=== PATIENT | male | born 1985 | race Caucasian/White ===

== ENCOUNTER → 2016-11-19 | Outpatient (CLI) | payer OTHER ==
[2016-11-19 10:49] LABS: HEMOGLOBIN 15.5 gm/dl (14.0-17.5); RED BLOOD COUNT 4.85 M/UL (4.20-5.50); WHITE BLOOD COUNT 7.6 K/UL (4.5-11.0)
[2016-11-19 11:12] LABS: BUN/CREATININE RATIO 11 (0-10)
== END ==
LOC: LAB 10:13
PROVIDERS: Dermatology
DX: L40.0 Psoriasis vulgaris (principal); L40.1 Generalized pustular psoriasis
CPT/HCPCS: 36415; 80053; 82248; 85027

== ENCOUNTER → 2021-07-01 | Outpatient (CLI) | payer OTHER ==
[2021-07-01 17:39] LABS: HEMOGLOBIN 16.2 gm/dl (14.0-17.5); RED BLOOD COUNT 4.82 M/UL (4.20-5.50); WHITE BLOOD COUNT 9.1 K/UL (4.5-11.0)
[2021-07-01 17:57] LABS: BUN/CREATININE RATIO 14 (0-10)
[2021-07-03 08:15] LABS: HIV AB/P24 AG SCREEN Non Reactive (Non Reactive)
[2021-07-03 11:16] LABS: HBSAG SCREEN Negative (Negative); HEP A AB, IGM Negative (Negative); HEP B CORE AB, IGM Negative (Negative); HEP C VIRUS AB <0.1 (0.0-0.9)
[2021-07-03 22:07] LABS: QUANTIFERON MITOGEN VALUE >10.00 IU/mL (.); QUANTIFERON NIL VALUE 0.02 IU/mL (.); QUANTIFERON TB2 AG VALUE 0.01 IU/mL (.); QUANTIFERON-TB GOLD PLUS Negative (Negative)
== END ==
LOC: RAD 15:17
PROVIDERS: Dermatology
DX: J43.9 Emphysema, unspecified (principal); L40.0 Psoriasis vulgaris; R91.8 Other nonspecific abnormal finding of lung field
CPT/HCPCS: 71046; 80053; 80074; 80076; 85025; 87389

== ENCOUNTER 2021-11-30 22:29 | Emergency (ER) | payer OTHER ==
[2021-12-01] MEDS ORDERED: ENDOCET 5-3251 EACH PO (00:13)
== END 2021-12-01 00:35 | disposition home or self-care (01) ==
LOC: ER1 22:29
DX: S52.122A Displaced fracture of head of left radius, initial encounter for closed fracture (principal); V19.9XXA Pedal cyclist (driver) (passenger) injured in unspecified traffic accident, initial encounter; Y92.410 Unspecified street and highway as the place of occurrence of the external cause
CPT/HCPCS: 29105; 73080; 99283

== ENCOUNTER → 2021-12-04 | Outpatient (CLI) | payer OTHER ==
[~2021-12-04] MED LIST: ENDOCET 5-3251 EACH PO
== END ==
LOC: KOH-I 09:00
DX: S52.122A Displaced fracture of head of left radius, initial encounter for closed fracture (principal)
CPT/HCPCS: 73200

== ENCOUNTER → 2022-01-14 | Outpatient (CLI) | payer OTHER ==
[2022-01-14 10:44] LABS: HEMOGLOBIN 15.1 gm/dl (14.0-17.5); RED BLOOD COUNT 4.58 M/UL (4.20-5.50); WHITE BLOOD COUNT 8.2 K/UL (4.5-11.0)
[2022-01-14 11:07] LABS: BUN/CREATININE RATIO 9 (0-10)
== END ==
LOC: LAB 09:58
PROVIDERS: Dermatology
DX: L40.0 Psoriasis vulgaris (principal); L40.1 Generalized pustular psoriasis
CPT/HCPCS: 36415; 80053; 85027